=== PATIENT | female | born 1970 | race Hispanic/Latino ===

== ENCOUNTER 2019-01-13 16:57 | Emergency (ER) | payer OTHER ==
[2019-01-13] MEDS ORDERED: Sodium Chloride 0.9% 1,000 ML IV STA ×2 (18:59→19:00)
--- NOTE | 2019-01-13 19:03 | ED PDOC ---
HPI: Psych/Substance Abuse Time Seen by Provider: 01/13/19 18:34 Chief Complaint (Nursing): Alcohol Ingestion Chief Complaint (Provider): Alcohol Ingestion History Per: Patient History/Exam Limitations: no limitations Current Symptoms Are (Timing): Gone Now Modifying Factor(s): Alcohol Additional Complaint(s): 48 year old female with past medical history of alcohol abuse, arrives to the emergency department as a self-referral for alcohol withdrawals. Patient states she went several weeks without drinking but drank heavily yesterday. She denies previous history of hospitalizations or seizures for alcohol withdrawals. No reports of suicidal or homicidal ideation. PCP: none provided Past Medical History Reviewed: Historical Data, Nursing Documentation, Vital Signs Vital Signs: Last Vital Signs Temp 98.3 F 01/13/19 17:07 Pulse 145 H 01/13/19 17:07 Resp 20 01/13/19 17:07 BP 160/101 H 01/13/19 17:07 Pulse Ox 96 01/13/19 17:07 - Medical History PMH: Anxiety, HTN - Family History Family History: States: Unknown Family Hx - Immunization History Hx Tetanus Toxoid Vaccination: Yes Hx Influenza Vaccination: Yes Hx Pneumococcal Vaccination: Yes - Home Medications Home Medications: Ambulatory Orders Medication Instructions Recorded chlordiazePOXIDE [Chlordiazepoxide 25 mg PO Q6 PRN #10 cap 01/13/19 HCl] - Allergies Allergies/Adverse Reactions: Allergies Allergy/AdvReac Type Severity Reaction Status Date / Time No Known Allergies Allergy Verified 01/13/19 17:08 Review of Systems ROS Statement: Except As Marked, All Systems Reviewed And Found Negative Neurological: Negative for: Seizures Psych: Positive for: Withdrawal. Negative for: Suicidal ideation (or homidal ideation) Physical Exam - Reviewed Nursing Documentation Reviewed: Yes Vital Signs Reviewed: Yes - Physical Exam Appears: Positive for: Well, Non-toxic, No Acute Distress Head Exam: Positive for: ATRAUMATIC, NORMAL INSPECTION, NORMOCEPHALIC Skin: Positive for: Normal Color Eye Exam: Positive for: Normal appearance ENT: Positive for: Normal ENT Inspection Neck: Positive for: Normal, Supple Cardiovascular/Chest: Positive for: Regular Rate, Rhythm, Chest Non Tender Respiratory: Positive for: Normal Breath Sounds. Negative for: Wheezing, Respiratory Distress Gastrointestinal/Abdominal: Positive for: Normal Exam, Soft. Negative for: Tenderness, Guarding, Rebound Extremity: Positive for: Normal ROM (upper/lower) Neurologic/Psych: Positive for: Alert, Oriented (x3), Mood/Affect (calm/cooperative), Gait (steady). Negative for: Motor/Sensory Deficits, Aphasia, Other (tremor or tongue fasciculations) - Laboratory Results Result Diagrams: 01/13/19 19:19 01/13/19 19:19 - ECG O2 Sat by Pulse Oximetry: 96 (RA) Pulse Ox Interpretation: Normal Medical Decision Making Medical Decision Making: Time: 1518 Initial Plan: work-up for alcohol withdrawals. * Labs * Librium 50mg PO * IV fluids * Re-evaluation Time: 1529 --Upon triage review, patient is requesting detox. Denies suicidal or homicidal ideation. External report additionally reviewed: patient has had 4 visits within the past year for alcohol intoxication and withdrawals related visits. Time: 1899 --Patient is signed out to Dr. Olivia, pending re-evaluation. Scribe Attestation: Documented by Mary Barron, acting as a scribe for Leda Hyman MD. Provider Scribe Attestation: All medical record entries made by the Scribe were at my direction and personally dictated by me. I have reviewed the chart and agree that the record accurately reflects my personal performance of the history, physical exam, medical decision making, and the department course for this patient. I have also personally directed, reviewed, and agree with the discharge instructions and disposition. Disposition - Clinical Impression Clinical Impression: Alcohol withdrawal - Disposition Disposition Time: 19:00 Condition: IMPROVED Prescriptions: chlordiazePOXIDE [Chlordiazepoxide HCl] 25 mg PO Q6 PRN #10 cap PRN Reason: anxiety/shakiness Instructions: Alcohol Withdrawal Forms: [employer] (Filipino)
[2019-01-13 19:07] VITALS: TEMP 98.2
[2019-01-13 19:26] LABS: BASO % 0.2 % (0.0-2.0); HEMOGLOBIN 14.7 g/dL (12.0-16.0); LYMPH # 0.8 K/uL (1.0-4.3); LYMPH % 13.1 % (20.0-40.0); MEAN CORPUSCULAR HEMOGLOBIN 29.9 pg (27.0-31.0); MEAN CORPUSCULAR HGB CONC 34.4 g/dL (33.0-37.0); MONO # 0.5 K/uL (0.0-0.8); MONO % 7.3 % (0.0-10.0); NEUT % 79.4 % (50.0-75.0); NRBC % 0.1 % (0.0-0.0); RBC 4.91 Mil/uL (3.80-5.20); RED CELL DISTRIBUTION WIDTH 13.7 % (11.5-14.5); WHITE BLOOD COUNT 6.3 K/uL (4.8-10.8)
[2019-01-13] MEDS ORDERED: Multivitamin (MVI) 10 ML, Folic Acid 1 MG, Thiamine 100 MG in Dextrose 5%/0.45% NS 1,00... IV ONE (19:26)
--- NOTE | 2019-01-13 19:26 | ED PDOC ---
- Laboratory Results Result Diagrams: 01/13/19 19:19 01/13/19 19:19 - ECG O2 Sat by Pulse Oximetry: 96 (RA) Medical Decision Making Medical Decision Making: Time: 1899 --Patient is endorsed to provider by Dr. Hyman, pending re-evaluation. 20:00 Patient is resting comfortable with stable vitals. 21:00 She is stable and in no distress in ED bed. 22:00 She continues to have stable vitals on the monitor and remains in no distress. 23:00 Patient is comfortable with stable vitals. 23:52 Patient reports marked improvement of symptoms and feels well for discharge. Diagnosis is alcohol withdrawal. Return precautions provided. Scribe Attestation: Documented by Mary Barron, acting as a scribe for Jim Olivia MD. Provider Scribe Attestation: All medical record entries made by the Scribe were at my direction and personally dictated by me. I have reviewed the chart and agree that the record accurately reflects my personal performance of the history, physical exam, medical decision making, and the department course for this patient. I have also personally directed, reviewed, and agree with the discharge instructions and disposition. Disposition - Clinical Impression Clinical Impression: Alcohol withdrawal - POA Present On Arrival: None - Disposition Disposition: Routine/Home Disposition Time: 23:53 Condition: IMPROVED Prescriptions: chlordiazePOXIDE [Chlordiazepoxide HCl] 25 mg PO Q6 PRN #10 cap PRN Reason: anxiety/shakiness Instructions: Alcohol Withdrawal Forms: [employer] (German)
[2019-01-13 19:45] LABS: BLOOD UREA NITROGEN 16 mg/dl (7-17); CALCIUM 10.6 mg/dL (8.4-10.2); GFR NON-AFRICAN AMERICAN > 60
[2019-01-13 22:08] VITALS: BP 139/81
[2019-01-13 23:48] VITALS: PULSE 101; RESP 18
[2019-01-13 23:55] VITALS: O2SAT 96
== END 2019-01-14 00:02 | disposition home or self-care (01) ==
LOC: H.ER 16:57
DX: F10.239 Alcohol dependence with withdrawal, unspecified (principal); I10 Essential (primary) hypertension
CPT/HCPCS: 80048; 80320; 85025; 96361; 96374; 96375; 99283; J2060; J2405; J3411; J7030; J7042

== ENCOUNTER 2019-02-08 23:31 | Emergency (ER) | payer OTHER ==
[2019-02-08 23:39] VITALS: O2SAT 99
[2019-02-08] MEDS ORDERED: Sodium Chloride 0.9% 1,000 ML IV STA (23:57)
[2019-02-09 00:34] LABS: BASO % 0.3 % (0.0-2.0); LYMPH # 0.3 K/uL (1.0-4.3); LYMPH % 6.2 % (20.0-40.0); MEAN CORPUSCULAR HEMOGLOBIN 32.2 pg (27.0-31.0); MEAN CORPUSCULAR HGB CONC 35.1 g/dL (33.0-37.0); MEAN PLATELET VOLUME 8.2 fl (7.2-11.7); MONO # 0.4 K/uL (0.0-0.8); MONO % 7.1 % (0.0-10.0); NEUT # 4.7 K/uL (1.8-7.0); NEUT % 86.4 % (50.0-75.0); PLATELET COUNT 133 K/uL (130-400); RBC 4.34 Mil/uL (3.80-5.20); WHITE BLOOD COUNT 5.4 K/uL (4.8-10.8)
[2019-02-09 00:47] LABS: ALB/GLOB RATIO 1.3 (1.0-2.1); ALBUMIN 4.5 g/dL (3.5-5.0); ALT/SGPT 45 U/L (9-52); AST/SGOT 114 U/L (14-36); BLOOD UREA NITROGEN 12 mg/dl (7-17); CALCIUM 9.6 mg/dL (8.4-10.2); GFR NON-AFRICAN AMERICAN > 60; LIPASE 259 U/L (23-300)
--- NOTE | 2019-02-09 02:18 | ED PDOC ---
HPI: Psych/Substance Abuse Time Seen by Provider: 02/08/19 23:35 Chief Complaint (Nursing): Alcohol Ingestion Chief Complaint (Provider): Alcohol Ingestion Additional Complaint(s): 48 y/o female with extensive history of alcoholism presents to the ED complaining of withdrawal symptoms. Patient states her last drink was this morning and she has been vomiting since 6 am and has been feeling very shaky. Patient denies fever, chest pain, abdominal pain. Patient is concerned she is in withdrawal and states that she normally drinks 10 drinks per day. Patient offers no other medical complaints. Past Medical History Vital Signs: Last Vital Signs Temp 98.1 F 02/08/19 23:36 Pulse 140 H 02/08/19 23:36 Resp 22 02/08/19 23:36 BP 172/86 H 02/08/19 23:36 Pulse Ox 99 02/08/19 23:36 - Medical History PMH: Anxiety, HTN - Surgical History Surgical History: No Surg Hx - Family History Family History: States: Unknown Family Hx - Social History Current smoker - smoking cessation education provided: No Alcohol: > 2 Drinks/Day Drugs: Denies - Immunization History Hx Tetanus Toxoid Vaccination: Yes Hx Influenza Vaccination: Yes Hx Pneumococcal Vaccination: Yes - Home Medications Home Medications: Ambulatory Orders Medication Instructions Recorded chlordiazePOXIDE [Chlordiazepoxide 25 mg PO Q6 PRN #10 cap 01/13/19 HCl] - Allergies Allergies/Adverse Reactions: Allergies Allergy/AdvReac Type Severity Reaction Status Date / Time No Known Allergies Allergy Verified 01/13/19 17:08 Review of Systems ROS Statement: Except As Marked, All Systems Reviewed And Found Negative Gastrointestinal: Positive for: Vomiting Psych: Positive for: Withdrawal Physical Exam - Reviewed Nursing Documentation Reviewed: Yes Vital Signs Reviewed: Yes - Physical Exam Appears: Positive for: No Acute Distress (tremulous; appears to be withdrawing) Head Exam: Positive for: ATRAUMATIC, NORMAL INSPECTION, NORMOCEPHALIC Skin: Positive for: Normal Color, Warm, DRY Eye Exam: Positive for: EOMI, Normal appearance, PERRL ENT: Positive for: Normal ENT Inspection Neck: Positive for: Normal, Painless ROM Cardiovascular/Chest: Positive for: Regular Rate, Rhythm, Tachycardia. Negative for: Murmur Respiratory: Positive for: Normal Breath Sounds. Negative for: Respiratory Distress Gastrointestinal/Abdominal: Positive for: Normal Exam, Soft. Negative for: Tenderness Back: Positive for: Normal Inspection Extremity: Positive for: Normal ROM. Negative for: Pedal Edema, Deformity Neurological/Psych: Positive for: Awake, Alert, Normal Tone, Mood/Affect (agitated). Negative for: Motor/Sensory Deficits - Laboratory Results Result Diagrams: 02/09/19 00:31 02/09/19 00:31 Lab Results: Total Bilirubin 2.3 mg/dl (0.2-1.3) H 02/09/19 00:31 AST 114 U/L (14-36) H D 02/09/19 00:31 ALT 45 U/L (9-52) 02/09/19 00:31 Alkaline Phosphatase 109 U/L (38-126) 02/09/19 00:31 Total Protein 7.8 G/DL (6.3-8.2) 02/09/19 00:31 Albumin 4.5 g/dL (3.5-5.0) 02/09/19 00:31 Globulin 3.4 gm/dL (2.2-3.9) 02/09/19 00:31 Albumin/Globulin Ratio 1.3 (1.0-2.1) 02/09/19 00:31 Lipase 259 U/L (23-300) 02/09/19 00:31 - ECG O2 Sat by Pulse Oximetry: 99 (RA) Pulse Ox Interpretation: Normal Medical Decision Making Medical Decision Making: Time: 23:57 Initial Impression: Alcohol withdrawal Initial Plan: * Labs * IV Fluids * Zofran * Ativan 03:53 Patient's vitals improved slightly but patient is still tachycardic. Patient's potassium levels are low, will replete.\ pt resting in bed in no distress 0500 pt improved vitals, sleeping throughout pt pulse 80s awake and alert, stable for dc instructed on outpt alcohol detox pt with stable gait ------- Scribe Attestation: Documented by Tanner Tony, acting as a scribe Robert Stein MD Provider Scribe Attestation: All medical record entries made by the Scribe were at my direction and personally dictated by me. I have reviewed the chart and agree that the record accurately reflects my personal performance of the history, physical exam, medical decision making, and the department course for this patient. I have also personally directed, reviewed, and agree with the discharge instructions and disposition Disposition - Clinical Impression Clinical Impression: Alcohol withdrawal - Patient ED Disposition Is Patient to be Admitted: No Counseled Patient/Family Regarding: Studies Performed, Diagnosis, Need For Followup - Disposition Disposition: Routine/Home Disposition Time: 05:07 Condition: IMPROVED Forms: [facility] (Haitian)
[2019-02-09] MEDS ORDERED: Sodium Chloride 0.9% 1,000 ML IV STA (02:38)
[2019-02-09] MEDS ORDERED: Potassium Chloride 20 mEq ER Tab PO STA (03:52)
[2019-02-09] MEDS ORDERED: Multivitamin (MVI) 10 ML, Thiamine 100 MG, Folic Acid 1 MG in Dextrose 5%/0.45% NS 1,00... IV ONE (03:52)
[2019-02-09 04:37] LABS: LYMPHOCYTE 4 % (20-50); MONOCYTE 7 % (0-10); NEUTROPHIL 89 % (42-75); PLATELET ESTIMATE SLIGHTLY DECREASED (NORMAL); TOTAL CELLS COUNTED 100
[2019-02-09 04:40] LABS: ANISOCYTOSIS SLIGHT; LARGE PLATELETS PRESENT; OVALOCYTES SLIGHT
[2019-02-09 05:22] VITALS: RESP 18; TEMP 97.7
[2019-02-09] MEDS ORDERED: Potassium Chloride 20 mEq ER Tab PO ONE (06:32)
[2019-02-09 08:54] VITALS: BP 154/90; PULSE 90
--- NOTE | 2019-02-11 11:58 | CARD ---
APPROVED REPORT Date of service: 02/08/2019 EKG Measurement Heart [id number] <Conclusion> Sinus tachycardia Nonspecific ST abnormality Abnormal ECG
== END 2019-02-09 08:47 | disposition home or self-care (01) ==
LOC: H.ER 23:31
DX: F10.239 Alcohol dependence with withdrawal, unspecified (principal); F41.9 Anxiety disorder, unspecified; I10 Essential (primary) hypertension
CPT/HCPCS: 80053; 80320; 82948; 83690; 85025; 96374; 96375; 96376; 99285; J2060; J2405; J3411; J7030; J7042